=== PATIENT | female | born 1970 | race Caucasian/White ===

== ENCOUNTER 2016-09-13 09:05 | Emergency (ER) | payer OTHER, BC ==
[2016-09-13 09:37] VITALS: BP 129/87
--- NOTE | 2016-09-13 10:15 | EDM.PDOC ---
ED HPI Trauma - General Chief Complaint: Lower Extremity Injury/Pain Stated Complaint: R ANKLE INJURY Time Seen by Provider: 09/13/16 09:48 Source: Reports: Patient History Limitations: Reports: No limitations - History of Present Illness INITIAL COMMENTS - FREE TEXT/NARRATIVE: The patient presents with right ankle pain. She was walking into work and slipped on the ice. She twisted her right ankle. She has some pain with walking in the posterior ankle. Occurred When: yesterday Occurred Where: work Method of Injury: other (Slipped on the ice) Severity: moderate Pain/Injury Location: Reports: lower extremity, right (ankle) Consciousness: Reports: no loss of consciousness Associated Symptoms: Reports: no other symptoms Allergies/ADRs: Allergies bacitracin [From Neosporin ([id number])] Allergy (Verified 09/13/16 09:37) Rash minocycline Allergy (Verified 09/13/16 09:37) Hives neomycin [From Neosporin ([id number])] Allergy (Verified 09/13/16 09:37) Rash Penicillins Allergy (Verified 09/13/16 09:37) Hives polymyxin B [From Neosporin ([id number])] Allergy (Verified 09/13/16 09:37) Rash Home Medications: Ambulatory Orders Calcium Carbonate/Vitamin D3 [Calcium 500 + Vit D Caplet] 1 each PO DAILY [Confirmed 09/13/16] Chromium Picolinate 400 mcg PO BID 09/13/16 [Confirmed 09/13/16] Flecainide Acetate [Flecainide Acetate] 1 tab PO BID 09/13/16 [Confirmed ] Magnesium 250 mg PO DAILY 09/13/16 [Confirmed 09/13/16] Multivitamin [Multiple Vitamins] 1 each PO DAILY 09/13/16 [Confirmed 09/13/16] Pantoprazole Sodium [Protonix] 40 mg PO DAILY 09/13/16 [Confirmed 09/13/16] metFORMIN HCl [Metformin HCl] 2 tab PO BEDTIME 09/13/16 [Confirmed 09/13/16] Past Medical History - Past Health History Medical/Surgical History: Denies Medical/Surgical History Cardiovascular History: Reports: Arrhythmia, Other (see below) Other Cardiovascular History: PVC's 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: Reports: 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 (see below) Other OB/BYN History: novasure ablasion - Past Surgical History HEENT Surgical History: Reports: Adenoidectomy GI Surgical History: Reports: Bariatric procedure, Colonoscopy, EGD Musculoskeletal Surgical History: Reports: Arthroscopic knee Other Musculoskeletal Surgeries/Procedures:: left knee scoping Social & Family History - Family History Family Medical History: Noncontributory - Tobacco Use Smoking Status *Q: Never Smoker - Caffeine Use Caffeine Use: Reports: Other - Recreational Drug Use Recreational Drug Use: No Review of Systems - Review of Systems Review Of Systems: See Below Constitutional: Reports: no symptoms Eyes: Reports: no symptoms Ears: Reports: no symptoms Nose: Reports: no symptoms Mouth/Throat: Reports: no symptoms Respiratory: Reports: No Symptoms Cardiovascular: Reports: no symptoms GI/Abdominal: Reports: No symptoms Genitourinary: Reports: no symptoms Musculoskeletal: Reports: other (Right ankle pain) Trauma Exam - Physical Exam Exam: See Below Exam Limited By: No limitations General Appearance: Reports: alert, no apparent distress Head: Reports: atraumatic, normocephalic Ears: Reports: normal external exam Nose: Reports: normal inspection Respiratory Exam: Reports: no respiratory distress Course - Vital Signs Last Recorded V/S: Last Vital Signs Temp 98.3 F 09/13/16 09:25 Pulse 76 09/13/16 09:25 Resp 18 09/13/16 09:25 BP 129/87 09/13/16 09:25 Pulse Ox 99 09/13/16 09:25 - Orders/Labs/Meds Orders: Active Orders 24 hr Category Date Time Status Ankle Min 3V Rt [CR] Stat Exams 09/13/16 09:48 Taken - Re-Assessments/Exams Free Text/Narrative Re-Assessment/Exam: 09/13/16 10:11 Her x-ray looks good. I see no acute injury. I feel she has a sprain. She has an francisco wrap. I will refer her to PT. 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 Take motrin or aleve for pain. Follow up with physical therapy. - My Orders Last 24 Hours: My Active Orders 09/13/16 09:48 Ankle Min 3V Rt [CR] Stat - Assessment/Plan Last 24 Hours: My Active Orders 09/13/16 09:48 Ankle Min 3V Rt [CR] Stat
--- NOTE | 2016-09-13 11:16 | CR ---
Right ankle: Four views of the right ankle were obtained. Comparison: No previous study. Plantar spur is noted. Ankle mortise is symmetric. Mild soft tissue swelling is identified. Minimal bony density is noted off the medial malleolus which appears old. No acute fracture or other abnormality is seen. Impression: 1. Incidental findings. No acute bony abnormality is identified on right ankle exam. Diagnostic code #2
== END 2016-09-13 10:25 | disposition home or self-care (01) ==
LOC: JD.ED 09:05
DX: S93.491A Sprain of other ligament of right ankle, initial encounter (principal); K21.9 Gastro-esophageal reflux disease without esophagitis; W00.0XXA Fall on same level due to ice and snow, initial encounter; Y92.69 Other specified industrial and construction area as the place of occurrence of the external cause; Y99.0 Civilian activity done for income or pay; Z88.1 Allergy status to other antibiotic agents; Z98.84 Bariatric surgery status; Z98.890 Other specified postprocedural states
CPT/HCPCS: 73610-26-RT; 73610-RT; 99282; 99283; 99284

== ENCOUNTER 2016-10-27 08:57 | Observation (INO) | payer BC, OTHER ==
--- NOTE | 2016-10-27 08:59 | EDM.PDOC ---
ED HPI GENERAL MEDICAL PROBLEM - General Chief Complaint: Chest Pain Stated Complaint: CHEST PAIN Time Seen by Provider: 10/27/16 08:59 - History of Present Illness INITIAL COMMENTS - FREE TEXT/NARRATIVE: 46-year-old female presents emergency room with chest pain. This chest pain started around 8:30 this morning. The pain is substernal radiates into her right neck and shoulder. 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 She an extensive cardiac workup done in 2011 which was when her last and only stress test was done that was normal. The patient is doing well with her PVCs she takes flecainide 50 mg twice daily. She did not do well with beta blockers. This chest pain started this morning around 8:30. Without associated nausea vomiting or diaphoresis she does have reading pain into her right neck and into her shoulder as well the pain is described as a pressure sensation she rates the pain as a 7 or 8/10 at this time. Right Chest Pain Score (Numeric/FACES): 7 - Related Data Allergies Allergy/AdvReac Type Severity Reaction Status Date / Time bacitracin Allergy Rash Verified 10/27/16 12:58 [From Neosporin ([id number])] minocycline Allergy Hives Verified 10/27/16 12:58 neomycin Allergy Rash Verified 10/27/16 12:58 [From Neosporin ([id number])] Penicillins Allergy Hives Verified 10/27/16 12:58 polymyxin B Allergy Rash Verified 10/27/16 12:58 [From Neosporin ([id number])] Home Meds: Home Meds Chromium Picolinate 400 mcg PO BID 09/13/16 [History] Flecainide Acetate [Flecainide Acetate] 1 tab PO BID 09/13/16 [History] Magnesium 500 mg PO BEDTIME 09/13/16 [History] Multivitamin [Multiple Vitamins] 1 each PO BEDTIME 09/13/16 [History] Pantoprazole Sodium [Protonix] 40 mg PO DAILY 09/13/16 [History] Bifidobacter. 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) Other OB/BYN History: novasure ablasion - Past Surgical History GI Surgical History: Reports: Bariatric Procedure, Colonoscopy, EGD Musculoskeletal Surgical History: Reports: Arthroscopic Knee Social & Family History - Family History Family Medical History: Noncontributory - Tobacco Use Smoking Status *Q: Never Smoker - Caffeine Use Caffeine Use: Reports: Other - Recreational Drug Use Recreational Drug Use: No ED ROS GENERAL - Review of Systems Review Of Systems: See Below Constitutional: Denies: Fever, Chills HEENT: Reports: No Symptoms Respiratory: Reports: No Symptoms Cardiovascular: Reports: Chest Pain, Blood Pressure Problem (Noticed her blood pressure is a little higher than normal today she is not treated for hypertension.). Denies: Dyspnea on Exertion, Edema, Palpitations GI/Abdominal: Reports: No Symptoms : Reports: No Symptoms Musculoskeletal: Reports: No Symptoms Skin: Reports: No Symptoms Neurological: Reports: No Symptoms ED EXAM, GENERAL - Physical Exam Exam: See Below Exam Limited By: No Limitations General Appearance: Alert, No Apparent Distress Head: Atraumatic, Normocephalic Neck: Normal Inspection, Supple, Non-Tender, Full Range of Motion. No: Lymphadenopathy (L), Lymphadenopathy (R) Respiratory/Chest: No Respiratory Distress, Lungs Clear, Normal Breath Sounds Cardiovascular: Regular Rate, Rhythm, No Edema, No Murmur GI/Abdominal: Normal Bowel Sounds, Soft, Non-Tender Back Exam: Normal Inspection. No: CVA Tenderness (L), CVA Tenderness (R) Extremities: Normal Inspection, Non-Tender, No Pedal Edema EKG INTERPRETATION EKG Date: 10/27/16 Rhythm: NSR Luckey: LAD-left axis deviation P-wave: present QRS: other (Q waves in lead 3 otherwise normal QRS with a leftward axis) ST-T: other (Very subtle nonspecific nondiagnostic changes) QT: normal Comparison: NA - no prior EKG EKG Interpretation Comments: Abnormal Course - Vital Signs Last Recorded V/S: Last Vital Signs Temp 37.2 C 10/27/16 19:28 Pulse 79 06/08/17 19:28 Resp 16 10/27/16 19:28 BP 116/63 10/27/16 19:28 Pulse Ox 97 10/27/16 19:28 - Orders/Labs/Meds Orders: Active Orders 24 hr Category Date Time Status Sodium Chloride 0.9% [Normal Saline] 1,000 ml Med 10/27/16 09:15 Active IV ASDIRECTED Medication Orders Acetaminophen (Tylenol) 650 mg PO Q4H PRN PRN Reason: Pain (Mild 1-3)/fever Last Admin: 10/27/16 17:35 Dose: 650 mg Hydrocodone Bitart/Acetaminophen (Harmans 325-5 Mg) 1 tab PO Q4H PRN PRN Reason: Pain (moderate 4-6) Albuterol/Ipratropium (Duoneb 3.0-0.5 Mg/3 Ml) 3 ml NEB Q4H PRN PRN Reason: Shortness Of Breath/wheezing Bisacodyl (Dulcolax) 5 mg PO DAILY PRN PRN Reason: Constipation Docusate Sodium (Colace) 100 mg PO BID PRN PRN Reason: Constipation Enoxaparin Sodium (Lovenox) 40 mg SUBCUT DAILY [facility] Flecainide Acetate (Tambocor) 50 mg PO BID [facility] Hydralazine HCl (Apresoline) 20 mg IVPUSH Q4H PRN PRN Reason: Hypertension Sodium Chloride (Normal Saline) 1,000 mls @ 50 mls/hr IV ASDIRECTED [facility] Last Admin: 10/27/16 09:36 Dose: 50 mls/hr Promethazine HCl 12.5 mg/ (Sodium Chloride) 50.5 mls @ 100 mls/hr IV Q6H PRN PRN Reason: Nausea/Vomiting Lorazepam (Ativan) 1 mg IV Q6H PRN PRN Reason: Nausea/Vomiting Magnesium Oxide (Magnesium Oxide) 400 mg PO BEDTIME [facility] Magnesium Sulfate (Pharmacy To Dose - Magnesium Replacement) 1 dose .XX ASDIRECTED [facility] Metoprolol Tartrate (Lopressor) 5 mg IVPUSH Q4H PRN PRN Reason: Tachycardia Morphine Sulfate (Morphine) 2 mg IVPUSH Q2H PRN PRN Reason: Pain (severe 7-10) Stop: 10/28/16 14:36 Last Admin: 10/27/16 14:37 Dose: 2 mg Multivitamins (Thera) 1 each PO BEDTIME [facility] Ondansetron HCl (Zofran) 4 mg IV Q6H PRN PRN Reason: Nausea/Vomiting Pantoprazole Sodium (Protonix) 40 mg PO DAILY [facility] Calcium Carb/Vitamin D3/Vit K1 [Viactiv Soft Chew] 2 Tab) 0 each PO BEDTIME [facility] Chromium Picolinate [Chromium Picolinate ] 400 Mcg 0 each PO BID [facility] Polyethylene Glycol (Miralax) 17 gm PO DAILY PRN PRN Reason: Constipation Potassium Chloride (Pharmacy To Dose - Potassium Replacement) 1 dose .XX ASDIRECTED [facility]LE[facility] Saccharomyces Boulardii (Florastor) 250 mg PO DAILY [facility] Senna/Docusate Sodium (Senna Plus) 1 tab PO BID PRN PRN Reason: Constipation Temazepam (Restoril) 30 mg PO BEDTIME PRN PRN Reason: Sleep Labs: Laboratory Tests 10/27/16 10/27/16 10/27/16 Range/Units 09:35 09:35 09:35 WBC 4.30 (3.98-10.04) K/mm3 RBC 4.74 (3.98-5.22) M/mm3 Hgb 15.5 (11.2-15.7) gm/L Hct 44.1 (34.1-44.9) % MCV 93.0 (79.4-94.8) fl MCH 32.7 H (25.6-32.2) pg MCHC 35.1 (32.2-35.5) g/dl RDW Std Deviation 40.9 (36.4-46.3) fL Plt Count 268 (182-369) K/mm3 MPV 9.0 L (9.4-12.3) fl Neutrophils % (Manual) 36 L (40-60) % Band Neutrophils % 0 (0-10) % Lymphocytes % (Manual) 54 H (20-40) % Atypical Lymphs % 0 % Monocytes % (Manual) 8 (2-10) % Eosinophils % (Manual) 2 (0.7-5.8) % Basophils % (Manual) 0 L (0.1-1.2) Platelet Estimate Adequate RBC Morph Comment Normal PT 10.6 (8.0-13.0) SECONDS INR 0.97 APTT 27 (22-36) SECONDS Sodium 138 (136-145) mEq/L Potassium 4.1 (3.5-5.1) mEq/L Chloride 105 (98-107) mEq/L Carbon Dioxide 22 (21-32) mEq/L Anion Gap 15.1 H (5-15) BUN 13 (7-18) mg/dL Creatinine 0.8 (0.55-1.02) mg/dL Est Cr Clr Drug Dosing 87.27 mL/min Estimated GFR (MDRD) > 60 (>60) mL/min BUN/Creatinine Ratio 16.3 (14-18) Glucose 92 (74-106) mg/dL Calcium 8.8 (8.5-10.1) mg/dL Total Bilirubin 0.7 (0.2-1.0) mg/dL AST 20 (15-37) U/L ALT 26 (14-59) U/L Alkaline Phosphatase 91 (46-116) U/L Troponin I < 0.017 (0.00-0.056) ng/mL Total Protein 7.9 (6.4-8.2) g/dl Albumin 3.8 (3.4-5.0) g/dl Globulin 4.1 gm/dL Albumin/Globulin Ratio 0.9 L (1-2) TSH 3rd Generation 2.063 (0.358-3.74) uIU/mL 10/27/16 Range/Units 11:45 WBC (3.98-10.04) K/mm3 RBC (3.98-5.22) M/mm3 Hgb (11.2-15.7) gm/L Hct (34.1-44.9) % MCV (79.4-94.8) fl MCH (25.6-32.2) pg MCHC (32.2-35.5) g/dl RDW Std Deviation (36.4-46.3) fL Plt Count (182-369) K/mm3 MPV (9.4-12.3) fl Neutrophils % (Manual) (40-60) % Band Neutrophils % (0-10) % Lymphocytes % (Manual) (20-40) % Atypical Lymphs % % Monocytes % (Manual) (2-10) % Eosinophils % (Manual) (0.7-5.8) % Basophils % (Manual) (0.1-1.2) Platelet Estimate RBC Morph Comment PT (8.0-13.0) SECONDS INR APTT (22-36) SECONDS Sodium (136-145) mEq/L Potassium (3.5-5.1) mEq/L Chloride (98-107) mEq/L Carbon Dioxide (21-32) mEq/L Anion Gap (5-15) BUN (7-18) mg/dL Creatinine (0.55-1.02) mg/dL Est Cr Clr Drug Dosing mL/min Estimated GFR (MDRD) (>60) mL/min BUN/Creatinine Ratio (14-18) Glucose (74-106) mg/dL Calcium (8.5-10.1) mg/dL Total Bilirubin (0.2-1.0) mg/dL AST (15-37) U/L ALT (14-59) U/L Alkaline Phosphatase (46-116) U/L Troponin I < 0.017 (0.00-0.056) ng/mL Total Protein (6.4-8.2) g/dl Albumin (3.4-5.0) g/dl Globulin gm/dL Albumin/Globulin Ratio (1-2) TSH 3rd Generation (0.358-3.74) uIU/mL Meds: Medications Generic Name Dose Route Start Last Admin Trade Name Freq PRN Reason Stop Dose Admin Acetaminophen 650 mg 10/27/16 14:15 10/27/16 17:35 Tylenol PO 650 mg Q4H PRN Administration Pain (Mild 1-3)/fever Hydrocodone Bitart/Acetaminophen 1 tab 10/27/16 14:15 Harmans 325-5 Mg PO Q4H PRN Pain (moderate 4-6) Albuterol/Ipratropium 3 ml 10/27/16 14:15 Duoneb 3.0-0.5 Mg/3 Ml NEB Q4H PRN Shortness Of Breath/wheezing Bisacodyl 5 mg 10/27/16 14:15 Dulcolax PO DAILY PRN Constipation Docusate Sodium 100 mg 10/27/16 14:15 Colace PO BID PRN Constipation Enoxaparin Sodium 40 mg 10/28/16 09:00 Lovenox SUBCUT DAILY CATHLEEN Flecainide Acetate 50 mg 10/27/16 21:00 Tambocor PO BID CATHLEEN Hydralazine HCl 20 mg 10/27/16 14:15 Apresoline IVPUSH Q4H PRN Hypertension Sodium Chloride 1,000 mls @ 50 mls/hr 10/27/16 09:15 10/27/16 09:36 Normal Saline IV 50 mls/hr ASDIRECTED CATHLEEN Administration Promethazine HCl 12.5 mg/ 50.5 mls @ 100 mls/hr 10/27/16 14:15 Sodium Chloride IV Q6H PRN Nausea/Vomiting Lorazepam 1 mg 10/27/16 14:15 Ativan IV Q6H PRN Nausea/Vomiting Magnesium Oxide 400 mg 10/27/16 21:00 Magnesium Oxide PO BEDTIME CATHLEEN Magnesium Sulfate 1 dose 10/27/16 14:15 Pharmacy To Dose - Magnesium Replacement .XX ASDIRECTED [facility] Metoprolol Tartrate 5 mg 10/27/16 14:15 Lopressor IVPUSH Q4H PRN Tachycardia Morphine Sulfate 2 mg 10/27/16 14:35 10/27/16 14:37 Morphine IVPUSH 10/28/16 14:36 2 mg Q2H PRN Administration Pain (severe 7-10) Multivitamins 1 each 10/27/16 21:00 Thera PO BEDTIME [facility] Ondansetron HCl 4 mg 10/27/16 14:15 Zofran IV Q6H PRN Nausea/Vomiting Pantoprazole Sodium 40 mg 10/28/16 09:00 Protonix PO DAILY [facility] Calcium Carb/Vitamin 0 each 10/27/16 21:00 D3/Vit K1 [Viactiv PO Soft Chew] 2 Tab) BEDTIME [facility] Chromium Picolinate 0 each 10/27/16 21:00 [Chromium Picolinate PO ] 400 Mcg BID [facility] Polyethylene Glycol 17 gm 10/27/16 14:15 Miralax PO DAILY PRN Constipation Potassium Chloride 1 dose 10/27/16 14:15 Pharmacy To Dose - Potassium Replacement .XX ASDIRECTED [facility] Saccharomyces Boulardii 250 mg 10/28/16 09:00 Florastor PO DAILY [facility] Senna/Docusate Sodium 1 tab 10/27/16 14:15 Senna Plus PO BID PRN Constipation Temazepam 30 mg 10/27/16 14:15 Restoril PO BEDTIME PRN Sleep Discontinued Medications Generic Name Dose Route Start Last Admin Trade Name Freq PRN Reason Stop Dose Admin Aspirin 324 mg 10/27/16 09:05 10/27/16 09:28 Aspirin PO 10/27/16 09:06 324 mg ONETIME ONE Administration Morphine Sulfate 2 mg 10/27/16 10:10 10/27/16 10:14 Morphine IVPUSH 10/27/16 10:11 2 mg ONETIME ONE Administration Morphine Sulfate Confirm 10/27/16 10:15 10/27/16 10:42 Morphine Administered 10/27/16 10:16 Not Given Dose 2 mg .ROUTE .STK-MED ONE Morphine Sulfate 2 mg 10/27/16 10:33 10/27/16 10:42 Morphine IVPUSH 10/27/16 10:34 2 mg ONETIME ONE Administration Morphine Sulfate 2 mg 10/27/16 10:55 10/27/16 11:00 Morphine IVPUSH 10/27/16 10:56 2 mg ONETIME ONE Administration Morphine Sulfate 2 mg 10/27/16 11:29 10/27/16 11:36 Morphine IVPUSH 10/27/16 11:30 2 mg ONETIME ONE Administration Nitroglycerin 0.4 mg 10/27/16 09:05 10/27/16 09:37 Nitrostat SL 10/27/16 09:16 0.4 mg Q5M PRN Administration Chest Pain Nitroglycerin 0.4 mg 10/27/16 09:45 10/27/16 09:51 Nitrostat SL 10/27/16 09:46 0.4 mg ONETIME ONE Administration Nitroglycerin 1 gm 10/27/16 09:45 10/27/16 09:52 Nitro-Bid 2% TOP 10/27/16 09:46 1 gm ONETIME ONE Administration Nitroglycerin 1 gm 10/27/16 10:55 10/27/16 11:02 Nitro-Bid 2% TOP 10/27/16 10:56 1 gm ONETIME ONE Administration Nitroglycerin Confirm 10/27/16 11:00 10/27/16 11:04 Nitro-Bid 2% Administered 10/27/16 11:01 Not Given Dose 1 gm .ROUTE .STK-MED ONE Nitroglycerin 1 gm 10/27/16 11:29 10/27/16 11:36 Nitro-Bid 2% TOP 10/27/16 11:30 1 gm ONETIME ONE Administration Pantoprazole Sodium 40 mg 10/27/16 21:00 Protonix Iv IV Q12HR CATHLEEN - Re-Assessments/Exams Free Text/Narrative Re-Assessment/Exam: 10/27/16 12:30 Patient presented to the emergency room with chest pain. Initially her chest pain was about an 8 upon arrival here this did respond to nitroglycerin however came back up to about a 4. She was started on an inch of nitro paste and given some morphine and did well with this but the pain did return to a 3 or 4 when the morphine wore off her topical nitroglycerin was increased to 2 g and she was given a little bit more and morphine recently she's done well just on topical nitroglycerin her pain is a 0-1. Initial troponin is negative second troponin was negative. Initial EKG showed no acute ischemia she has some nonspecific changes leftward axis. Q waves in 3 were noted. The patient thinks this is not new she's been told she's had these in the past. 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 She had an extensive cardiac workup done in 2011 are she was diagnosed with frequent PVCs. This has not been bothersome for her lately. At this point she's doing well in the nitroglycerin the patient should be observed longer than I can do in the emergency room and will need a stress test in the very near future. 10/27/16 13:10 Patient will be placed on observation per Dr. Mello Departure - Departure Time of Disposition: 12:37 Disposition: Refer to Observation Clinical Impression: Chest pain - My Orders Last 24 Hours: My Active Orders 10/27/16 09:15 Sodium Chloride 0.9% [Normal Saline] 1,000 ml IV ASDIRECTED - Assessment/Plan Last 24 Hours: My Active Orders 10/27/16 09:15 Sodium Chloride 0.9% [Normal Saline] 1,000 ml IV ASDIRECTED
[2016-10-27] MEDS ORDERED: Aspirin 81 MG Tab.Chew PO ONE (09:05)
[2016-10-27] MEDS: Nitroglycerin 0.4 MG Tab.SL SL PRN ×3 (09:27→09:37)
[2016-10-27] MEDS: Sodium Chloride 0.9% 1,000 ML IV SCH (09:36)
[2016-10-27] MEDS ORDERED: Nitroglycerin 0.4 MG Tab.SL SL ONE (09:45)
[2016-10-27] MEDS ORDERED: Nitroglycerin 2% Oint 1 GM UD Packet TOP ONE ×3 (09:45→11:29)
[2016-10-27] MEDS ORDERED: Morphine 2 MG/ML Syringe IVPUSH ONE ×4 (10:10→11:29)
[2016-10-27] MEDS ORDERED: Morphine 2 MG/ML Syringe ONE (10:15)
--- NOTE | 2016-10-27 10:32 | CR ---
Chest: Frontal view of the chest was obtained. Comparison: Previous chest x-ray of 07/27/11. Heart size and mediastinum are within normal limits. Lungs are clear. Mild scoliosis is present within the spine. Surgical clips are seen from prior cholecystectomy. Impression: 1. Nothing acute is identified on frontal chest x-ray. Diagnostic code #2
[2016-10-27] MEDS ORDERED: Nitroglycerin 2% Oint 1 GM UD Packet ONE (11:00)
[2016-10-27] MEDS ORDERED: Bisacodyl 5 MG Tab PO PRN (14:15)
[2016-10-27] MEDS ORDERED: Promethazine 12.5 MG in Sodium Chloride 0.9% 50 ML IV PRN (14:15)
[2016-10-27] MEDS ORDERED: Metoprolol Tartrate 5 MG/5 ML SDV IVPUSH PRN (14:15)
[2016-10-27] MEDS ORDERED: LORazepam 2 MG/ML MDV IV PRN (14:15)
[2016-10-27] MEDS ORDERED: Temazepam 30 MG Cap PO PRN (14:15)
[2016-10-27] MEDS ORDERED: hydrALAZINE 20 MG/ML SDV IVPUSH PRN (14:15)
[2016-10-27] MEDS ORDERED: Albuterol/Ipratropium 3.0-0.5 MG/3 ML Neb Soln NEB PRN (14:15)
[2016-10-27] MEDS ORDERED: Polyethylene Glycol 3350 Powder 17 GM Packet PO PRN (14:15)
[2016-10-27] MEDS ORDERED: Acetaminophen/HYDROcodone 325-5 MG Tab PO PRN (14:15)
[2016-10-27] MEDS ORDERED: Docusate Sodium 100 MG Cap PO PRN (14:15)
[2016-10-27] MEDS ORDERED: Ondansetron 4 MG/2 ML SDV IV PRN (14:15)
--- NOTE | 2016-10-27 14:15 | PCM.HP ---
H&P History of Present Illness - General Date of Service: 10/27/16 Admit Problem/Dx: Admission Diagnosis/Problem Admission Diagnosis/Problem Chest pain Source of Information: Patient, Family, Old Records, Provider, RN Notes Reviewed , Significant Other History Limitations: Reports: No Limitations - History of Present Illness Initial Comments - Free Text/Narative: This is a 46 yo white female with past medical hx/o GERD, Vitamin D Deficiency and Obesity who presented to ED with complaints of chest pain. She describes her pain as achy with radiation to her right shoulder and upper jaw. Her chest pain improved with nitroglycerine and morphine. her currently level is 3-4/10. She was 8 initially. Patient carries a hx/o Arrhythmia (PVCs) on flecainide. She denies ever been told if she has malignant arrhythmia. She had a holter study in 2016 and the report shows PVCs w/o SVTs. Patient denies any hx/o premature CAD in the family. She has not had any heart attack in the past. Her initial work up in ED shows unremarkable CBC. INR/PT and aPTT were both normal. Her chemistry is significant for AG 15.1. Troponin x 2 are negative. Her EKG shows no acute ST-T wave changes with no baseline comparison. Her CXR report reads nothing acute seen. Patient is being admitted for chest pain r/o ACS. Right Chest Pain Score (Numeric/FACES): 7 - Related Data Allergies/Adverse Reactions: Allergies Allergy/AdvReac Type Severity Reaction Status Date / Time bacitracin Allergy Rash Verified 10/27/16 12:58 [From Neosporin ([id number])] minocycline Allergy Hives Verified 10/27/16 12:58 neomycin Allergy Rash Verified 10/27/16 12:58 [From Neosporin ([id number])] Penicillins Allergy Hives Verified 10/27/16 12:58 polymyxin B Allergy Rash Verified 10/27/16 12:58 [From Neosporin ([id number])] Home Medications: Home Meds Chromium Picolinate 400 mcg PO BID 09/13/16 [History] Flecainide Acetate [Flecainide Acetate] 1 tab PO BID 09/13/16 [History] Magnesium 500 mg PO BEDTIME 09/13/16 [History] Multivitamin [Multiple Vitamins] 1 each PO BEDTIME 09/13/16 [History] Pantoprazole Sodium [Protonix] 40 mg PO DAILY 09/13/16 [History] Bifidobacter. 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: Reports: GERD PHONE REPRESENTATIVE History: Reports: Other (See Below) Other OB/BYN History: novasure ablasion - Past Surgical History GI Surgical History: Reports: Bariatric Procedure, Colonoscopy, EGD Musculoskeletal Surgical History: Reports: Arthroscopic Knee Social & Family History - Family History Family Medical History: Noncontributory - Tobacco Use Smoking Status *Q: Never Smoker Second Hand Smoke Exposure: No - Caffeine Use Caffeine Use: Reports: Other - Recreational Drug Use Recreational Drug Use: No H&P Review of Systems - Review of Systems: Review Of Systems: See Below General: Denies: Fever, Chills, Malaise, Weakness HEENT: Reports: No Symptoms Pulmonary: Denies: Shortness of Breath Cardiovascular: Reports: Chest Pain. Denies: Palpitations, Dyspnea on Exertion , Orthopnea, Edema, Lightheadedness, Syncope, Claudication, Blood Pressure Problem Gastrointestinal: Denies: Abdominal Pain, Nausea, Vomiting Genitourinary: Reports: No Symptoms Musculoskeletal: Reports: No Symptoms Skin: Reports: No Symptoms Psychiatric: Denies: Confusion, Depression, Hallucinations, Hallucinations ( Visual) Neurological: Denies: Confusion, Dizziness, Headache, Seizure, Syncope, Difficulty Walking, Weakness, Gait Disturbance Hematologic/Lymphatic: Reports: No Symptoms Immunologic: Reports: No Symptoms Exam - Exam Exam: See Below - Vital Signs Vital Signs: Last Vital Signs Temp 36.7 C 10/27/16 09:00 Pulse 98 10/27/16 09:00 Resp 21 H 10/27/16 09:00 BP 149/97 H 10/27/16 09:51 Pulse Ox 100 10/27/16 09:00 Weight: 92.986 kg - Exam General: Alert, Oriented, Cooperative, Mild Distress, Other (Obese) HEENT: Conjunctiva Clear, EACs Clear, EOMI, Hearing Intact, Mucosa Moist & [place] , Nares Patent, Normal Nasal Septum, Posterior Pharynx Clear, Pupils Equal, Pupils Reactive, TMs Clear Neck: Supple, Trachea Midline, +2 Carotid Pulse wo Bruit, Other (short and thick ) Lungs: Clear to Auscultation, Normal Respiratory Effort Cardiovascular: Regular Rate, Regular Rhythm Abdomen: Normal Bowel Sounds, Soft. No: Organomegaly, Tenderness (Female) Exam: Deferred Rectal (Female) Exam: Deferred Back Exam: Normal Inspection, Decreased Range of Motion Extremities: Normal Inspection, Normal Pulses Peripheral Pulses: 3+: Posterior Tibial (L), Posterior Tibial (R), Dorsalis Pedis (L), Dorsalis Pedis (R) Skin: Warm, Dry, Intact Neuro Extensive - Mental Status: Oriented x3, Normal Cognition, Memory Intact Neuro Extensive - Motor, Sensory, Reflexes: CN II-XII Intact, Normal Gait Psychiatric: Alert, Normal Affect, Normal Mood - Patient Data Result Diagrams: 10/27/16 09:35 10/27/16 09:35 EKG INTERPRETATION EKG Date: 10/27/16 Rhythm: NSR [place]: LAD-left axis deviation Comparison: NA - no prior EKG *Q Meaningful Use (ADM) - VTE *Q VTE Criteria *Q: - Stroke *Q Stroke Criteria *Q: - AMI *Q AMI Criteria *Q: Problem List Initiated/Reviewed/Updated: Yes Orders Last 24hrs: Medication Orders Sodium Chloride (Normal Saline) 1,000 mls @ 50 mls/hr IV ASDIRECTED CAHTLEEN Last Admin: 10/27/16 09:36 Dose: 50 mls/hr Assessment/Plan Comment:: Assessment/Plan: CP r/o ACS - HEART Score is 1. Low Score (0-3 points), risk of MACE of 0.9-1.7%: Predicts 6-week risk of major adverse cardiac event - She had an extensive cardiac work up in 2011 with fairly benign diagnosis of frequent PVCs per patient - Chest pain unclear in etiology - No hx/o Premature CAD in family - Risk factors: Obesity - No HTN, HLD, CAD, Diabetes, Hx/o VT/Stroke, Non-smoker - CP protocol: Serial Troponin Q6 x2, ekg x 1 in am, TFT and Lipid Panel in am - ASA, Nitro, Morphine, +/- BB, - Will add statin if lipid panel is abnormal - No need cardiac stress test-her pre-CAD risk if low Hx/o Arrhythmia - Chronic PVCs - No documented malignant arrhythmia - Continue flecainide Morbid Obesity - She used to take Metformin for weight loss - Advised LSM - Dietary Consult for weight management GERD - Continue PPIs Plan: Admit to OBS with Telemetry AHA diet Routine AM Labs Resume Home Meds SW/CM for d/c planning Code Status:1 Additional orders as above Possible discharge in am
[2016-10-27] MEDS ORDERED: Morphine 2 MG/ML Syringe IVPUSH PRN (14:35)
[2016-10-27] MEDS: Acetaminophen 325 MG Tab PO PRN ×2 (17:35→21:01)
[2016-10-27] MEDS ORDERED: VIT K1 PO SCH (21:00)
[2016-10-27] MEDS ORDERED: Pantoprazole 40 MG Vial IV SCH (21:00)
[2016-10-27] MEDS ORDERED: Multivitamins,Therapeutic Tab PO SCH (21:00)
[2016-10-27] MEDS ORDERED: Flecainide 50 MG Tab PO SCH (21:00)
[2016-10-27] MEDS ORDERED: VITAMIN D3 PO SCH (21:00)
[2016-10-27] MEDS ORDERED: CHROMIUM PICOLINATE 400 MCG PO SCH (21:00)
[2016-10-27] MEDS ORDERED: MAGNESIUM OXIDE 400 MG PO SCH (21:00)
[2016-10-27] MEDS ORDERED: CALCIUM CARB PO SCH (21:00)
[2016-10-27] MEDS ORDERED: Magnesium Oxide 400 MG Tab PO SCH (21:00)
[2016-10-28] MEDS: Sodium Chloride 0.9% 1,000 ML IV SCH (00:13)
[2016-10-28] MEDS ORDERED: Magnesium Oxide 400 MG Tab PO ONE (08:15)
[2016-10-28] MEDS ORDERED: Potassium Chloride 20 MEQ Tab.ER PO ONE (08:15)
[2016-10-28] MEDS ORDERED: Saccharomyces Boulardii (Probiotic) 250 MG Cap PO SCH (09:00)
[2016-10-28] MEDS ORDERED: Enoxaparin 40 MG/0.4 ML Syringe SUBCUT SCH (09:00)
[2016-10-28] MEDS ORDERED: Pantoprazole 40 MG Tab.CR **OWN MED PO SCH (09:00)
[2016-10-28] MEDS ORDERED: Pantoprazole 40 MG Tab.CR PO SCH (09:00)
--- NOTE | 2016-10-28 09:20 | PCM.DCSUM1 ---
Discharge Summary - Hospital Course Brief History: This is a 46 yo white female with past medical hx/o GERD, Vitamin D Deficiency and Obesity who presented to ED with complaints of achy chest pain with radiation to her right shoulder and upper jaw, was admitted for chest pain r/o ACS. - Discharge Data Discharge Date: 10/28/16 Discharge Disposition: Home, Self-Care 01 Condition: Good - Discharge Diagnosis/Problem(s) (1) Hypomagnesemia SNOMED Code(s): 079135203 ICD Code: E83.42 - HYPOMAGNESEMIA Status: Chronic (2) Chest pain SNOMED Code(s): 65147905 ICD Code: R07.9 - CHEST PAIN, UNSPECIFIED Status: Resolved (3) Frequent PVCs SNOMED Code(s): 88644606 ICD Code: I49.3 - VENTRICULAR PREMATURE DEPOLARIZATION Status: Acute - Patient Summary/Data Operative Procedure(s) Performed: None Complications: None Consults: Consultations 10/27/16 14:15 Consult to Case Management [CONS] Routine Consult to Nutrition Internship [CONS] Routine Consult to Spiritual Care [CONS] Routine 10/27/16 14:21 Consult to Dietary [Consult to Patient Account Liaison] [CONS] Routine Hospital Course: The patient was primarily admitted for chest pain rule out ACS. She carrieds no past medical history related to coronary artery disease. She also had no history of [place] as well as no premature CAD in the family. All her basic cardiac workup revealed no clear etiology of her chest pain. Her cardiac enzymes were all negative and her EKG series were non-diagnostic. However she responded to nitroglycerin paste as well as morphine for medical management. Patient did not meet criteria for cardiac stress test. Her HEART score and Pre- CAD probability were both low. We felt her chest pain might be related to her chronic PVCs. Therefore we recommend she follows-up with her montessori program director Dr. De La Torre in [facility] right after discharge. Her hospital course was uncomplicated. She is now completely asymptomatic and the rest of her chronic medical illness remained stable on this admission. Patient is now stable for discharge. He will be provided prescriptions for sublingual nitroglycerin and a short course of norco for her precordial chest pain. She was advised to call her primary care doctor or go to the nearest medical facility should her symptom persists or gets worse. The patient expressed understanding and in agreement with the plans as discussed above. All questions were answered. - Patient Instructions Diet: Usual Diet as Tolerated Activity: As Tolerated Driving: May Drive Today Notify Provider of: Fever, Increased Pain, Nausea and/or Vomiting Other/Special Instructions: - Please take all medications as directed. - If your symptom persists or gets worse, call your PCP of go to the nearest medical facility. - Keep all your medical appointments as scheduled - Discharge Plan Prescriptions/Med Rec: Hydrocodone/Acetaminophen [[place] 5-325 Tablet] 1 each PO Q6H PRN #12 tablet PRN Reason: Other Nitroglycerin 0.4 mg SL ASDIRECTED PRN #6 tab.subl PRN Reason: Chest Pain Home Medications: Home Meds Chromium Picolinate 400 mcg PO BID 09/13/16 [History] Flecainide Acetate 1 tab PO BID 09/13/16 [History] Magnesium 500 mg PO BEDTIME 09/13/16 [History] Multivitamin [Multiple Vitamins] 1 each PO BEDTIME 09/13/16 [History] Pantoprazole Sodium [Protonix] 40 mg PO DAILY 09/13/16 [History] Bifidobacter. Bifidum/B.Longum [Florajen Bifidoblend] 460 mg PO DAILY 10/27/16 [ History] Calcium Carb/Vitamin D3/Vit K1 [Viactiv Soft Chew] 2 tab PO BEDTIME 10/27/16 [ History] Hydrocodone/Acetaminophen [[place] 5-325 Tablet] 1 each PO Q6H PRN #12 tablet 02/05 [Rx] Nitroglycerin 0.4 mg SL ASDIRECTED PRN #6 tab.subl 10/28/16 [Rx] Patient Handouts: Nonspecific Chest Pain Referrals: Joselyn Lopes NP [Primary Care Provider] - 11/07/16 10:00 am (Follow-up appointment with Joselyn Lopes NP on November 07, 2016 at 10:00 AM. Please arrive 15 min early for check in. ) Yolanda Cool MD [Ordering Only Provider] - 11/04/16 11:00 am ( come 15 minutes prior to the apointment, to register. appointment is derik time ) - Discharge Summary/Plan Comment DC Time >30 min.: Yes (45 mins) Discharge Summary/Plan Comment: Discharge to Home - General Info Date of Service: 10/28/16 Admission Dx/Problem (Free Text: Admission Diagnosis/Problem Admission Diagnosis/Problem Chest pain Subjective Update: Follow Up Functional Status: Reports: pain controlled, tolerating diet, ambulating, urinating. Denies: new symptoms - Review of Systems General: Denies: Fever, Weakness, Fatigue, Malaise, Chills HEENT: Reports: no symptoms Pulmonary: Denies: shortness of breath, pleuritic chest pain, cough Cardiovascular: Denies: Chest Pain, Palpitations, Dyspnea on Exertion, Orthopnea , Edema, Lightheadedness Gastrointestinal: Denies: Abdominal pain, Nausea, Vomiting Genitourinary: Reports: no symptoms Musculoskeletal: Reports: no symptoms Skin: Reports: no symptoms Neurological: Denies: Confusion, Difficulty Walking, Weakness, Gait Disturbance Psychiatric: Denies: depression, mood lability, anxiety, agitation, hallucinations Systems Review Comment: No overnight or acute issues. She is completely asymptomatic this morning. Her follow up CE this am remains normal. Her EKG this Am shows no acute ST-T wave changes. Lipid panel and Thyroid Function Test are both within normal limits. - Patient Data Vitals - Most Recent: Last Vital Signs Temp 36.7 C 10/28/16 08:00 Pulse 71 10/28/16 03:09 Resp 12 10/28/16 08:00 BP 96/55 L 10/28/16 08:00 Pulse Ox 99 10/28/16 03:09 Weight - Most Recent: 95.572 kg I&O - Last 24 hours: Intake & Output 10/27/16 10/28/16 10/28/16 22:59 06:59 14:59 Intake Total 700 Balance 700 Lab Results - Last 24 hrs: Laboratory Results - last 24 hr 10/27/16 10/28/16 10/28/16 Range/Units 17:54 06:25 06:25 WBC 6.09 (3.98-10.04) K/mm3 RBC 4.01 (3.98-5.22) M/mm3 Hgb 13.3 (11.2-15.7) gm/L Hct 38.1 (34.1-44.9) % MCV 95.0 H (79.4-94.8) fl MCH 33.2 H (25.6-32.2) pg MCHC 34.9 (32.2-35.5) g/dl RDW Std Deviation 40.9 (36.4-46.3) fL Plt Count 218 (182-369) K/mm3 MPV 8.9 L (9.4-12.3) fl Neut % (Auto) 58.1 (34.0-71.1) % Lymph % (Auto) 25.6 (19.3-51.7) % [place] % (Auto) 13.5 H (4.7-12.5) % Eos % (Auto) 2.3 (0.7-5.8) Baso % (Auto) 0.3 (0.1-1.2) % Neut # (Auto) 3.54 (1.56-6.13) K/mm3 Lymph # (Auto) 1.56 (1.18-3.74) K/mm3 [place] # (Auto) 0.82 H (0.24-0.36) K/mm3 Eos # (Auto) 0.14 (0.04-0.36) K/mm3 Baso # (Auto) 0.02 (0.01-0.08) K/mm3 Sodium 138 (136-145) mEq/L Potassium 3.7 (3.5-5.1) mEq/L Chloride 107 (98-107) mEq/L Carbon Dioxide 23 (21-32) mEq/L Anion Gap 11.7 (5-15) BUN 12 (7-18) mg/dL Creatinine 0.7 (0.55-1.02) mg/dL Est Cr Clr Drug Dosing 99.73 mL/min Estimated GFR (MDRD) > 60 (>60) mL/min BUN/Creatinine Ratio 17.1 (14-18) Glucose 99 (74-106) mg/dL Calcium 8.0 L (8.5-10.1) mg/dL Magnesium 1.7 L (1.8-2.4) mg/dl CK-MB (CK-2) < 0.5 < 0.5 (0-3.6) ng/ml Troponin I < 0.017 < 0.017 (0.00-0.056) ng/mL Triglycerides 154 H (<150) mg/dL Cholesterol 139 (<200) mg/dL LDL Cholesterol Direct 73 (<100) mg/dL HDL Cholesterol 53.0 (40-59) mg/dL Free T4 0.90 (0.76-1.46) ng/dL TSH 3rd Generation 2.979 (0.358-3.74) uIU/mL Med Orders - Current: Current Medications Acetaminophen (Tylenol) 650 mg PO Q4H PRN PRN Reason: Pain (Mild 1-3)/fever Last Admin: 10/27/16 21:01 Dose: 650 mg Hydrocodone Bitart/Acetaminophen ([place] 325-5 Mg) 1 tab PO Q4H PRN PRN Reason: Pain (moderate 4-6) Last Admin: 10/28/16 05:10 Dose: 1 tab Albuterol/Ipratropium (Duoneb 3.0-0.5 Mg/3 Ml) 3 ml NEB Q4H PRN PRN Reason: Shortness Of Breath/wheezing Bisacodyl (Dulcolax) 5 mg PO DAILY PRN PRN Reason: Constipation Docusate Sodium (Colace) 100 mg PO BID PRN PRN Reason: Constipation Enoxaparin Sodium (Lovenox) 40 mg SUBCUT DAILY [facility] Last Admin: 10/28/16 08:59 Dose: 40 mg Flecainide Acetate (Tambocor) 50 mg PO BID [facility] Last Admin: 10/28/16 08:58 Dose: 50 mg Hydralazine HCl (Apresoline) 20 mg IVPUSH Q4H PRN PRN Reason: Hypertension Sodium Chloride (Normal Saline) 1,000 mls @ 50 mls/hr IV ASDIRECTED [facility] Last Admin: 10/28/16 00:13 Dose: 50 mls/hr Promethazine HCl 12.5 mg/ (Sodium Chloride) 50.5 mls @ 100 mls/hr IV Q6H PRN PRN Reason: Nausea/Vomiting Lorazepam (Ativan) 1 mg IV Q6H PRN PRN Reason: Nausea/Vomiting Magnesium Oxide (Magnesium Oxide) 400 mg PO BEDTIME [facility] Last Admin: 10/27/16 20:54 Dose: 400 mg Magnesium Sulfate (Pharmacy To Dose - Magnesium Replacement) 1 dose .XX ASDIRECTED [facility] Metoprolol Tartrate (Lopressor) 5 mg IVPUSH Q4H PRN PRN Reason: Tachycardia Morphine Sulfate (Morphine) 2 mg IVPUSH Q2H PRN PRN Reason: Pain (severe 7-10) Stop: 10/28/16 14:36 Last Admin: 10/27/16 14:37 Dose: 2 mg Multivitamins (Thera) 1 each PO BEDTIME [facility] Last Admin: 10/27/16 20:52 Dose: 1 each Ondansetron HCl (Zofran) 4 mg IV Q6H PRN PRN Reason: Nausea/Vomiting Last Admin: 10/28/16 05:15 Dose: 4 mg Pantoprazole Sodium (Protonix) 40 mg PO DAILY [facility] Last Admin: 10/28/16 08:58 Dose: 40 mg Calcium Carb/Vitamin D3/Vit K1 [Viactiv Soft Chew] 2 Tab) 0 each PO BEDTIME [facility] Last Admin: 10/27/16 20:53 Dose: Not Given Chromium Picolinate [Chromium Picolinate ] 400 Mcg 0 each PO BID [facility] Last Admin: 10/27/16 20:53 Dose: Not Given Polyethylene Glycol (Miralax) 17 gm PO DAILY PRN PRN Reason: Constipation Potassium Chloride (Pharmacy To Dose - Potassium Replacement) 1 dose .XX ASDIRECTED [facility] Saccharomyces Boulardii (Florastor) 250 mg PO DAILY [facility] Last Admin: 10/28/16 08:57 Dose: 250 mg Senna/Docusate Sodium (Senna Plus) 1 tab PO BID PRN PRN Reason: Constipation Temazepam (Restoril) 30 mg PO BEDTIME PRN PRN Reason: Sleep Last Admin: 10/27/16 21:02 Dose: 30 mg Discontinued Medications Aspirin (Aspirin) 324 mg PO ONETIME ONE Stop: 10/27/16 09:06 Last Admin: 10/27/16 09:28 Dose: 324 mg Flecainide Acetate (Tambocor) 50 mg PO BID [facility] Magnesium Oxide (Magnesium Oxide) 400 mg PO BEDTIME [facility] Magnesium Oxide (Magnesium Oxide) 400 mg PO ONETIME ONE Stop: 10/28/16 08:16 Last Admin: 10/28/16 08:59 Dose: 400 mg Morphine Sulfate (Morphine) 2 mg IVPUSH ONETIME ONE Stop: 10/27/16 10:11 Last Admin: 10/27/16 10:14 Dose: 2 mg Morphine Sulfate (Morphine) Confirm Administered Dose 2 mg .ROUTE .STK-MED ONE Stop: 10/27/16 10:16 Last Admin: 10/27/16 10:42 Dose: Not Given Morphine Sulfate (Morphine) 2 mg IVPUSH ONETIME ONE Stop: 10/27/16 10:34 Last Admin: 10/27/16 10:42 Dose: 2 mg Morphine Sulfate (Morphine) 2 mg IVPUSH ONETIME ONE Stop: 10/27/16 10:56 Last Admin: 10/27/16 11:00 Dose: 2 mg Morphine Sulfate (Morphine) 2 mg IVPUSH ONETIME ONE Stop: 10/27/16 11:30 Last Admin: 10/27/16 11:36 Dose: 2 mg Nitroglycerin (Nitrostat) 0.4 mg SL Q5M PRN PRN Reason: Chest Pain Stop: 10/27/16 09:16 Last Admin: 10/27/16 09:37 Dose: 0.4 mg Nitroglycerin (Nitrostat) 0.4 mg SL ONETIME ONE Stop: 10/27/16 09:46 Last Admin: 10/27/16 09:51 Dose: 0.4 mg Nitroglycerin (Nitro-Bid 2%) 1 gm TOP ONETIME ONE Stop: 10/27/16 09:46 Last Admin: 10/27/16 09:52 Dose: 1 gm Nitroglycerin (Nitro-Bid 2%) 1 gm TOP ONETIME ONE Stop: 10/27/16 10:56 Last Admin: 10/27/16 11:02 Dose: 1 gm Nitroglycerin (Nitro-Bid 2%) Confirm Administered Dose 1 gm .ROUTE .STK-MED ONE Stop: 10/27/16 11:01 Last Admin: 10/27/16 11:04 Dose: Not Given Nitroglycerin (Nitro-Bid 2%) 1 gm TOP ONETIME ONE Stop: 10/27/16 11:30 Last Admin: 10/27/16 11:36 Dose: 1 gm Pantoprazole Sodium (Protonix Iv) 40 mg IV Q12HR CATHLEEN Pantoprazole Sodium (Protonix) 40 mg PO DAILY CATHLEEN Potassium Chloride (Klor-Con M20) 40 meq PO ONETIME ONE Stop: 10/28/16 08:16 Last Admin: 10/28/16 08:58 Dose: 40 meq - Exam General: Reports: alert, oriented, cooperative, no acute distress HEENT: Reports: Pupils equal, Pupils reactive, EOMI, Mucous membr. moist/pink Neck: Reports: supple, trachea midline, no JVD, no thyromegaly Lungs: Reports: Clear to auscultation, Normal respiratory effort Cardiovascular: Reports: Regular Rate, Regular Rhythm Abdomen: Reports: bowel sounds present, soft, no tenderness, no distension (Female) Exam: Deferred Rectal (Female) Exam: Deferred Back Exam: Reports: Normal Inspection, Decreased Range of Motion Extremities: Reports: no edema, normal pulses, no tenderness/swelling, no clubbing, no cyanosis, no calf tenderness Skin: Reports: warm, dry, intact Neurological: Reports: no new focal deficit Psy/Mental Status: Reports: alert, normal affect, normal mood *Q Meaningful Use (DIS) - VTE *Q VTE Criteria *Q: - Stroke *Q Stroke Criteria *Q: - AMI *Q AMI Criteria *Q:
[2016-10-28 10:39] VITALS: BP 114/78
== END 2016-10-28 11:28 | disposition home or self-care (01) ==
LOC: JD.ED 08:57 → JD.MS 13:01
PROVIDERS: ADMIT Internal Medicine; ATTEND Internal Medicine
DX: R07.9 Chest pain, unspecified (principal); E83.42 Hypomagnesemia; I49.3 Ventricular premature depolarization; E55.9 Vitamin D deficiency, unspecified; E66.01 Morbid (severe) obesity due to excess calories; K21.9 Gastro-esophageal reflux disease without esophagitis; Z79.899 Other long term (current) drug therapy; Z88.0 Allergy status to penicillin; Z88.1 Allergy status to other antibiotic agents; Z88.8 Allergy status to other drugs, medicaments and biological substances; Z98.890 Other specified postprocedural states; Z98.84 Bariatric surgery status
CPT/HCPCS: 36415; 71010; 80048; 80053; 80061; 82553; 83735; 84439; 84443; 84484; 85025; 85610; 85730; 93005; A9270; J1650; J2270; J2405; J7040; 96361; 96372; 96374; 96375; 96376; 99217; 99219; 99284; 99285-25; G0378

== ENCOUNTER 2016-11-23 09:37 | Day surgery (SDC) | payer BC ==
[~2016-11-23 09:37] MED LIST: Lactated Ringers 1,000 ML IV SCH; Lidocaine 1%/Sod Bicarbonate in NS 8.4% 1 ML Syringe PRN; Sodium Chloride 0.9% 10 ML Syringe FLUSH PRN
--- NOTE | 2016-11-23 09:57 | PCM.PREANE ---
Preanesthetic Assessment - Procedure Proposed Procedure: Diagnostic EGD - Anesthesia/Transfusion/Family Hx Anesthesia History: Prior Anesthesia Without Reaction Family History of Anesthesia Reaction: No Transfusion History: No Prior Transfusion(s) Intubation History: Unknown - Review of Systems General: No Symptoms Pulmonary: No Symptoms Cardiovascular: Other (dysrhythmias ) Gastrointestinal: Other (GERD ) Neurological: No Symptoms Other: Reports: None - Physical Assessment NPO Status Date: 11/22/16 NPO Status Time: 21:00 Pulse: 77 O2 Sat by Pulse Oximetry: 95 Respiratory Rate: 16 Blood Pressure: 124/85 Temperature: 37.3 C Height: 1.7 m Weight: 95.572 kg ASA Class: 2 Mental Status: Alert & Oriented x3 Airway Class: Mallampati = 2 Dentition: Reports: Normal Dentition Thyro-Mental Finger Breadths: 3 Mouth Opening Finger Breadths: 3 ROM/Head Extension: Full Lungs: Clear to auscultation, Normal respiratory effort Cardiovascular: Regular Rate, Regular Rhythm - Allergies Allergies/Adverse Reactions: Allergies Allergy/AdvReac Type Severity Reaction Status Date / Time bacitracin Allergy Rash Verified 11/21/16 12:04 [From Neosporin ([id number])] minocycline Allergy Hives Verified 11/21/16 12:04 neomycin Allergy Rash Verified 11/21/16 12:04 [From Neosporin ([id number])] Penicillins Allergy Hives Verified 11/21/16 12:04 polymyxin B Allergy Rash Verified 11/21/16 12:04 [From Neosporin ([id number])] - Blood Blood Available: No Product(s) Available: None - Anesthesia Plan Pre-Op Medication Ordered: None - Acknowledgements Anesthesia Type Planned: MAC Pt an Appropriate Candidate for the Planned Anesthesia: Yes Alternatives and Risks of Anesthesia Discussed w Pt/Guardian: Yes Pt/Guardian Understands and Agrees with Anesthesia Plan: Yes PreAnesthesia Questionnaire - Past Health History Medical/Surgical History: Denies Medical/Surgical History HEENT History: Reports: Impaired Vision, Other (See Below) Other HEENT History: wears glasses Cardiovascular History: Reports: Arrhythmia, Other (See Below) Other Cardiovascular History: PVC's, atypical chest pain Respiratory History: Reports: None 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: Reports: GERD Genitourinary History: Reports: None EXEC. CREATIVE DIRECTOR History: Reports: Other (See Below) Other OB/BYN History: novasure ablation Neurological History: Reports: None Psychiatric History: Reports: None Endocrine/Metabolic History: Reports: None Hematologic History: Reports: Hemochromatosis Immunologic History: Reports: None Oncologic (Cancer) History: Reports: None Dermatologic History: Reports: None - Infectious Disease History Infectious Disease History: Reports: Chicken Pox, Shingles - Past Surgical History Head Surgeries/Procedures: Reports: None HEENT Surgical History: Reports: Adenoidectomy GI Surgical History: Reports: Bariatric Procedure, Cholecystectomy, Colonoscopy , EGD Musculoskeletal Surgical History: Reports: Arthroscopic Knee Other Musculoskeletal Surgeries/Procedures:: left knee scoping - SUBSTANCE USE Smoking Status *Q: Never Smoker Second Hand Smoke Exposure: No Days Per Week of Alcohol Use: 6 Number of Drinks Per Day: 1 Total Drinks Per Week: 6 Recreational Drug Use History: No - HOME MEDS Home Medications: Home Meds Chromium Picolinate 400 mcg PO BID 09/13/16 [History] Flecainide Acetate 1 tab PO BID 09/13/16 [History] Magnesium 500 mg PO BEDTIME 09/13/16 [History] Multivitamin [Multiple Vitamins] 1 each PO BEDTIME 09/13/16 [History] Pantoprazole Sodium [Protonix] 40 mg PO DAILY 09/13/16 [History] Bifidobacter. Bifidum/B.Longum [Florajen Bifidoblend] 460 mg PO DAILY 10/27/16 [ History] Calcium Carb/Vitamin D3/Vit K1 [Viactiv Soft Chew] 2 tab PO BEDTIME 10/27/16 [ History] Hydrocodone/Acetaminophen [[place] 5-325 Tablet] 1 each PO Q6H PRN #12 tablet 02/05 [Rx] Nitroglycerin 0.4 mg SL ASDIRECTED PRN #6 tab.subl 10/28/16 [Rx] - CURRENT (IN HOUSE) MEDS Current Meds: Current Medications Lactated Ringer's (Ringers, Lactated) 1,000 mls @ 125 mls/hr IV ASDIRECTED CATHLEEN Stop: 11/23/16 23:00 Lidocaine/Sodium Bicarbonate (Buffered Lidocaine 1% In Ns 8.4%) 0.25 ml .XX ONETIME PRN PRN Reason: Prior to IV Start Stop: 11/23/16 18:00 Sodium Chloride (Saline Flush) 10 ml FLUSH ASDIRECTED PRN PRN Reason: Keep Vein Open Stop: 11/23/16 18:00
[2016-11-23] MEDS ORDERED: fentaNYL 100 MCG/2 ML SDV ONE (10:22)
[2016-11-23] MEDS ORDERED: Propofol 200 MG/20 ML SDV ONE (10:22)
[2016-11-23] MEDS ORDERED: Midazolam 1 MG/ML 2 ML SDV ONE (10:23)
[2016-11-23] MEDS ORDERED: Lidocaine 1% 6 ML ONE (10:24)
--- NOTE | 2016-11-23 10:55 | PCM.OPNOTE ---
- General Post-Op/Procedure Note Date of Surgery/Procedure: 11/23/16 Operative Procedure(s): Esophagogastroduodenoscopy with antral biopsy 1, GE junction biopsy 2, and proximal third of the esophagus biopsy 2 -- all using cold forceps. Findings: Duodenal gastric bile reflux antritis Large amount of bowel within the body of the stomach Endoscopic findings consistent with sleeve gastrectomy Small hiatal hernia Pre Op Diagnosis: Atypical chest pain status post sleeve gastrectomy Post-Op Diagnosis: 1. Duodenal gastric bilious reflux. 2. Bile antritis. 3. Small hiatal hernia Anesthesia Technique: MAC, Moderate sedation Primary Surgeon: Curtis Durant Pathology: Antral, GE junction, proximal esophageal biopsies EBL in mLs: 1 Complications: None Condition: Good Free Text/Narrative:: After adequate IV sedation and analgesia with monitoring the patient was placed on her left side. Through a bite-block a lubricated upper endoscope was inserted into the esophagus and advanced under direct vision towards the stomach. Air was given here followed by entry through the pylorus into the duodenum. The second and first parts of the duodenum were endoscopically normal with no mass lesions or inflammatory changes seen. There was a large amount of bile within the residual body of the stomach and antral areas. There was a slight erythema to the antrum. There were no antral erosions or ulcers. A biopsy using cold forceps was taken for histologic evaluation. The gastric sleeve itself had no obvious complications. In the retroflexed view there was a small hiatal hernia. The fundus and body of the stomach were grossly normal. The scope was then withdrawn to the area of the GE junction. The hiatal hernia was seen. 2 random biopsies were taken of the GE junction. There were no gross inflammatory changes within the body of the esophagus. There was no stricturing. The scope was then withdrawn to the proximal third of the esophagus. At about 15 cm 2 biopsies were taken using cold forceps for histologic evaluation. The vocal cords were briefly visualized and were grossly normal. Air was removed as I finished procedure which she tolerated well. Quality Engineering Manager photographs taken for the patient for the record.
--- NOTE | 2016-11-23 11:06 | PCM48HPAN ---
Post Anesthesia Note - EVALUATION WITHIN 48HRS OF ANESTHETIC Vital Signs in Normal Range: Yes Patient Participated in Evaluation: Yes Respiratory Function Stable: Yes Airway Patent: Yes Cardiovascular Function Stable: Yes Hydration Status Stable: Yes Pain Control Satisfactory: Yes Nausea and Vomiting Control Satisfactory: Yes Mental Status Recovered: Yes
[2016-11-23 11:30] VITALS: BP 114/75
== END 2016-11-23 11:25 | disposition home or self-care (01) ==
LOC: JD.SDS 09:37
PROVIDERS: ATTEND Surgery
DX: K21.0 Gastro-esophageal reflux disease with esophagitis (principal); K44.9 Diaphragmatic hernia without obstruction or gangrene; K21.9 Gastro-esophageal reflux disease without esophagitis; Z88.0 Allergy status to penicillin; Z88.1 Allergy status to other antibiotic agents; Z88.8 Allergy status to other drugs, medicaments and biological substances; Z79.899 Other long term (current) drug therapy; Z98.84 Bariatric surgery status; Z98.890 Other specified postprocedural states; Z78.9 Other specified health status
CPT/HCPCS: 43239; 88305; J2250; J3010; J7120; J2704

== ENCOUNTER 2017-01-17 07:30 | Day surgery (SDC) | payer BC ==
[~2017-01-17 07:30] MED LIST changes: -Lactated Ringers 1,000 ML IV SCH; +Lidocaine 1% with EPINEPHrine 1:100,000 20 ML MDV ONE; +Lidocaine 1%/Sod Bicarbonate in NS 8.4% 1 ML Syringe IV PRN; -Lidocaine 1%/Sod Bicarbonate in NS 8.4% 1 ML Syringe PRN; +Sodium Chloride 0.9% 50 ML SDV ONE
[2017-01-17] MEDS ORDERED: Dexamethasone 4 MG/ML 5 ML MDV ONE (07:34)
[2017-01-17] MEDS ORDERED: Lidocaine 1% 4 ML ONE (07:34)
[2017-01-17] MEDS ORDERED: Propofol 200 MG/20 ML SDV ONE (07:34)
[2017-01-17] MEDS ORDERED: fentaNYL 250 MCG/5 ML SDV ONE (07:34)
[2017-01-17] MEDS ORDERED: Rocuronium 50 MG/5 ML Vial ONE (07:34)
[2017-01-17] MEDS ORDERED: Ondansetron 4 MG/2 ML SDV ONE (07:34)
[2017-01-17] MEDS ORDERED: Midazolam 1 MG/ML 2 ML SDV ONE (07:34)
[2017-01-17] MEDS: Lactated Ringers 1,000 ML IV SCH ×2 (07:45→10:55)
--- NOTE | 2017-01-17 07:47 | PCM.PREANE ---
Preanesthetic Assessment - Anesthesia/Transfusion/Family Hx Anesthesia History: Prior Anesthesia Without Reaction Family History of Anesthesia Reaction: No Transfusion History: No Prior Transfusion(s) Intubation History: Unknown - Review of Systems General: No Symptoms Pulmonary: No Symptoms Cardiovascular: No Symptoms, Chest Pain (history of atypical) Gastrointestinal: No Symptoms Neurological: No Symptoms - Physical Assessment NPO Status Date: 01/16/17 NPO Status Time: 21:00 Pulse: 84 O2 Sat by Pulse Oximetry: 96 Respiratory Rate: 16 Blood Pressure: 135/89 Temperature: 98.4 F Height: 5 ft 7 in Weight: 95.572 kg ASA Class: 2 Mental Status: Alert & Oriented x3 Airway Class: Mallampati = 1 Dentition: Reports: Normal Dentition Thyro-Mental Finger Breadths: 3 Mouth Opening Finger Breadths: 3 ROM/Head Extension: Full Lungs: Clear to Auscultation, Normal Respiratory Effort Cardiovascular: Regular Rate, Regular Rhythm - Lab Values: Laboratory Last Values WBC 3.81 K/mm3 (3.98-10.04) L 01/16/17 08:41 RBC 4.79 M/mm3 (3.98-5.22) 01/16/17 08:41 Hgb 15.6 gm/L (11.2-15.7) 01/16/17 08:41 Hct 44.5 % (34.1-44.9) 01/16/17 08:41 MCV 92.9 fl (79.4-94.8) 01/16/17 08:41 MCH 32.6 pg (25.6-32.2) H 01/16/17 08:41 MCHC 35.1 g/dl (32.2-35.5) 01/16/17 08:41 RDW Std Deviation 39.6 fL (36.4-46.3) 01/16/17 08:41 Plt Count 305 K/mm3 (182-369) 01/16/17 08:41 MPV 8.8 fl (9.4-12.3) L 01/16/17 08:41 Neut % (Auto) 41.7 % (34.0-71.1) 01/16/17 08:41 Lymph % (Auto) 42.3 % (19.3-51.7) 01/16/17 08:41 Carson % (Auto) 13.9 % (4.7-12.5) H 01/16/17 08:41 Eos % (Auto) 1.6 (0.7-5.8) 01/16/17 08:41 Baso % (Auto) 0.5 % (0.1-1.2) 01/16/17 08:41 Neut # (Auto) 1.59 K/mm3 (1.56-6.13) 01/16/17 08:41 Lymph # (Auto) 1.61 K/mm3 (1.18-3.74) 01/16/17 08:41 Carson # (Auto) 0.53 K/mm3 (0.24-0.36) H 01/16/17 08:41 Eos # (Auto) 0.06 K/mm3 (0.04-0.36) 01/16/17 08:41 Baso # (Auto) 0.02 K/mm3 (0.01-0.08) 01/16/17 08:41 HCG, Quant < 1.0 mIU/mL 01/16/17 08:41 Blood Type O POSITIVE 01/16/17 08:41 Gel Antibody Screen Negative 01/16/17 08:41 - Allergies Allergies/Adverse Reactions: Allergies Allergy/AdvReac Type Severity Reaction Status Date / Time bacitracin Allergy Rash Verified 01/16/17 14:43 [From Neosporin ([id number])] minocycline Allergy Hives Verified 01/16/17 14:43 neomycin Allergy Rash Verified 01/16/17 14:43 [From Neosporin ([id number])] Penicillins Allergy Hives Verified 01/16/17 14:43 polymyxin B Allergy Rash Verified 01/16/17 14:43 [From Neosporin ([id number])] - Blood Blood Available: No - Acknowledgements Anesthesia Type Planned: General Anesthesia Pt an Appropriate Candidate for the Planned Anesthesia: Yes Alternatives and Risks of Anesthesia Discussed w Pt/Guardian: Yes Pt/Guardian Understands and Agrees with Anesthesia Plan: Yes PreAnesthesia Questionnaire - Past Health History Medical/Surgical History: Denies Medical/Surgical History HEENT History: Reports: Impaired Vision, Other (See Below) Other HEENT History: wears glasses Cardiovascular History: Reports: Arrhythmia, Other (See Below) Other Cardiovascular History: PVC's, atypical chest pain Respiratory History: Reports: None 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: Reports: GERD Genitourinary History: Reports: None ROUGH CARPENTER History: Reports: Other (See Below) Other OB/BYN History: novasure ablation Musculoskeletal History: Reports: None Neurological History: Reports: None Psychiatric History: Reports: None Endocrine/Metabolic History: Reports: Obesity/BMI 30+ Hematologic History: Reports: None, Hemochromatosis Immunologic History: Reports: None Oncologic (Cancer) History: Reports: None Dermatologic History: Reports: None - Infectious Disease History Infectious Disease History: Reports: Chicken Pox, Shingles - Past Surgical History Head Surgeries/Procedures: Reports: None HEENT Surgical History: Reports: Adenoidectomy Respiratory Surgical History: Reports: None GI Surgical History: Reports: Bariatric Procedure, Cholecystectomy, Colonoscopy , EGD Female Surgical History: Reports: Endometrial Ablation Endocrine Surgical History: Reports: None Musculoskeletal Surgical History: Reports: Arthroscopic Knee Other Musculoskeletal Surgeries/Procedures:: left knee scoping Oncologic Surgical History: Reports: None - SUBSTANCE USE Smoking Status *Q: Never Smoker Tobacco Use Within Last Twelve Months: No Second Hand Smoke Exposure: No Days Per Week of Alcohol Use: 2 Number of Drinks Per Day: 2 Total Drinks Per Week: 4 Recreational Drug Use History: No - HOME MEDS Home Medications: Home Meds Flecainide Acetate 50 mg PO BID 09/13/16 [History] Magnesium 500 mg PO BEDTIME 09/13/16 [History] Multivitamin [Multiple Vitamins] 1 each PO BEDTIME 09/13/16 [History] Pantoprazole Sodium [Protonix] 40 mg PO DAILY 09/13/16 [History] Bifidobacter. Bifidum/B.Longum [Florajen Bifidoblend] 460 mg PO DAILY 10/27/16 [ History] Nitroglycerin 0.4 mg SL ASDIRECTED PRN #6 tab.subl 10/28/16 [Rx] Ca Carbonate/Vitamin D3/Vit K [Calcium + D Soft Chewable Tab] 1 tab PO DAILY [History] - CURRENT (IN HOUSE) MEDS Current Meds: Current Medications Lactated Ringer's (Ringers, Lactated) 1,000 mls @ 125 mls/hr IV ASDIRECTED CATHLEEN Lidocaine/Sodium Bicarbonate (Buffered Lidocaine 1% In Ns 8.4%) 0.25 ml IV ONETIME PRN PRN Reason: Prior to IV Start Sodium Chloride (Saline Flush) 10 ml FLUSH ASDIRECTED PRN PRN Reason: Keep Vein Open Discontinued Medications Cefazolin Sodium (Ancef) Confirm Administered Dose 2 gm .ROUTE .STK-MED ONE Stop: 01/17/17 07:49 Dexamethasone (Dexamethasone) Confirm Administered Dose 20 mg .ROUTE .STK-MED ONE Stop: 01/17/17 07:35 Fentanyl (Sublimaze) Confirm Administered Dose 250 mcg .ROUTE .STK-MED ONE Stop: 01/17/17 07:35 Lidocaine HCl (Xylocaine-Mpf 1%) Confirm Administered Dose 4 mls @ as directed .ROUTE .STK-MED ONE Stop: 01/17/17 07:35 Lidocaine/Epinephrine (Xylocaine 1% With Epinephrine 1:100,000) Confirm Administered Dose 20 ml .ROUTE .STK-MED ONE Stop: 01/17/17 07:24 Midazolam HCl (Versed 1 Mg/Ml) Confirm Administered Dose 2 mg .ROUTE .STK-MED ONE Stop: 01/17/17 07:35 Ondansetron HCl (Zofran) Confirm Administered Dose 4 mg .ROUTE .STK-MED ONE Stop: 01/17/17 07:35 Propofol (Diprivan 20 Ml) Confirm Administered Dose 200 mg .ROUTE .STK-MED ONE Stop: 01/17/17 07:35 Rocuronium [place] (Zemuron) Confirm Administered Dose 50 mg .ROUTE .STK-MED ONE Stop: 01/17/17 07:35 Sodium Chloride (Normal Saline) Confirm Administered Dose 50 ml .ROUTE .STK-MED ONE Stop: 01/17/17 07:24
[2017-01-17] MEDS ORDERED: ceFAZolin 1 GM Vial ONE (07:48)
[2017-01-17] MEDS ORDERED: Meperidine PF 50 MG/ML Syringe IVPUSH PRN (08:22)
[2017-01-17] MEDS ORDERED: Ondansetron 4 MG/2 ML SDV IVPUSH PRN (08:22)
[2017-01-17] MEDS ORDERED: fentaNYL 100 MCG/2 ML SDV IVPUSH PRN (08:22)
[2017-01-17] MEDS ORDERED: Lactated Ringers 1,000 ML ONE (08:31)
[2017-01-17] MEDS ORDERED: HYDROmorphone 1 MG/ML Syringe ONE (08:38)
[2017-01-17] MEDS ORDERED: Ketorolac 30 MG/ML SDV ONE (08:42)
[2017-01-17] MEDS ORDERED: Metoclopramide 10 MG/2 ML SDV ONE (08:43)
[2017-01-17] MEDS ORDERED: fentaNYL 100 MCG/2 ML SDV ONE (08:47)
[2017-01-17] MEDS ORDERED: Glycopyrrolate 0.2 MG/ML SDV ONE ×2 (09:11→09:13)
[2017-01-17] MEDS ORDERED: Neostigmine Methylsulfate 10 MG/10 ML MDV ONE (09:11)
--- NOTE | 2017-01-17 09:19 | PCM.OPNOTE ---
- General Post-Op/Procedure Note Date of Surgery/Procedure: 01/17/17 Operative Procedure(s): Total vaginal hysterectomy with bilateral salpingectomy Pre Op Diagnosis: Dysmenorrhea, menorrhagia, metrorrhagia Post-Op Diagnosis: Same plus small fibroid subserosal Anesthesia Technique: General ET Tube Primary Surgeon: Long Simpson Secondary Surgeon: Gilberto Staples Anesthesia Provider: [facility] Plan Administrator: Nilam Alexander (PAS) Hospice Plan Administrator: Walker Sotomayor ([id number]) Fluid Replacement, Intraop: 1,400 Output, Urine Amount: 5 EBL in mLs: 400 Drain/Tube Comments:: None Complications: None Condition: Good Free Text/Narrative:: Intake & Output 01/16/17 01/17/17 01/17/17 22:59 06:59 14:59 Output Total 5 Balance -5 Patient was transported to operating room #2 and placed under general anesthesia with endotracheal intubation low dorsal lithotomy position and prepared and draped in a sterile fashion SCDs in place and functioning prior surgery Ancef 2 g given intravenously prior surgery timeout performed confirming name date of and procedure as total vaginal hysterectomy bilateral salpingectomy. Examination under anesthesia had revealed normal size uterus no adnexal masses. Bladder was drained of approximately 5 mL of urine. The cervix was injected with 0.25% lidocaine with epinephrine utilizing 15 mL and multiple confluent areas. Circumscribing incision was made and posterior colpotomy was made placing long weighted speculum utilizing LigaSure impact crossclamping the left uterosacral and cardinal ligament bundle activating and incising same procedure carried out on patient's right side and proceeding cephalad in a pedicle fashion crossclamping activating and incising utilizing the LigaSure impact pedicles were created until reaching the triple pedicle bilaterally crossclamping with Zeina clamps the uterus and cervix removed intact the triple pedicles were suture ligated with 0 Vicryl bilaterally and then localizing the left tube grasping and retracting crossclamping with LigaSure impact activating and incising the left tube was removed, same procedure carried out in the right side. Both ovaries were normal. Neither ovary removed. Hemostasis was normal no active bleeding pursestring suture of 0 Monocryl was placed beginning at the apex and proceeding in a clockwise fashion to incorporate the pedicles extraperitoneally. Posterior cuff was closed running locking suture of 0 Monocryl in the anterior posterior cuff closed running locking suture of 0 Monocryl. Sponge needle pack asthma sharp count correct 2 no blood transfusions required patient transported postanesthesia care unit in satisfactory condition. All tissue sent to pathology for tissue evaluation.
--- NOTE | 2017-01-17 09:19 | PCM.POSTAN ---
POST ANESTHESIA ASSESSMENT - MENTAL STATUS Mental Status: Alert, Oriented - VITAL SIGNS Pulse Rate: 95 SaO2: 98 Resp Rate: 18 Blood Pressure: 128/90 Temperature: 98.5 F - RESPIRATORY Respiratory Status: Respiratory Rate WNL, Airway Patent, O2 Saturation Stable, Supplemental Oxygen - CARDIOVASCULAR CV Status: Pulse Rate WNL, Blood Pressure Stable - GASTROINTESTINAL GI Status: No Symptoms - PAIN Pain Score: 0 (crampy) - POST OP HYDRATION Hydration Status: Adequate & Stable
[2017-01-17] MEDS: HYDROmorphone 0.5 MG/0.5 ML Syringe IVPUSH PRN ×2 (09:20→09:43)
[2017-01-17] MEDS ORDERED: Acetaminophen/oxyCODONE 325-5 MG Tab PO ONE (12:00)
[2017-01-17 13:08] VITALS: BP 126/75
== END 2017-01-17 12:45 | disposition home or self-care (01) ==
LOC: JD.SDS 07:30
PROVIDERS: ATTEND Obstetrics & Gynecology
DX: D39.0 Neoplasm of uncertain behavior of uterus (principal); N72 Inflammatory disease of cervix uteri; K21.9 Gastro-esophageal reflux disease without esophagitis; Z88.0 Allergy status to penicillin; Z88.1 Allergy status to other antibiotic agents; Z88.8 Allergy status to other drugs, medicaments and biological substances; Z98.890 Other specified postprocedural states; Z79.899 Other long term (current) drug therapy; Z68.34 Body mass index [BMI] 34.0-34.9, adult
CPT/HCPCS: 36415; 58552; 84702; 85025; 86850; 86900; 86901; 93005; A9270; J0690; J1100; J1170; J1885; J2250; J2405; J2710; J2765; J3010; J3490; J7120; 00944; J2704

== ENCOUNTER → 2022-02-22 | Day surgery (SDC) | payer BC ==
[~2022-02-22] MED LIST changes: +Lactated Ringers 1,000 ML IV ONE; +Lidocaine 1% 4 ML ONE; -Lidocaine 1% with EPINEPHrine 1:100,000 20 ML MDV ONE; -Lidocaine 1%/Sod Bicarbonate in NS 8.4% 1 ML Syringe IV PRN; +Midazolam 1 MG/ML 2 ML SDV ONE; +Ondansetron 4 MG/2 ML SDV ONE; +Propofol 200 MG/20 ML SDV ONE; -Sodium Chloride 0.9% 10 ML Syringe FLUSH PRN; -Sodium Chloride 0.9% 50 ML SDV ONE; +fentaNYL 100 MCG/2 ML SDV ONE
== END ==
LOC: JD.SDS 06:00
PROVIDERS: ATTEND Surgery
DX: Z12.11 Encounter for screening for malignant neoplasm of colon (principal); K57.30 Diverticulosis of large intestine without perforation or abscess without bleeding; K37 Unspecified appendicitis; D64.9 Anemia, unspecified; I10 Essential (primary) hypertension; F41.9 Anxiety disorder, unspecified; K21.9 Gastro-esophageal reflux disease without esophagitis; E66.9 Obesity, unspecified; E55.9 Vitamin D deficiency, unspecified; D72.819 Decreased white blood cell count, unspecified; Z88.1 Allergy status to other antibiotic agents; Z88.0 Allergy status to penicillin; Z79.899 Other long term (current) drug therapy; Z98.890 Other specified postprocedural states; Z90.49 Acquired absence of other specified parts of digestive tract; Z90.710 Acquired absence of both cervix and uterus; Z68.34 Body mass index [BMI] 34.0-34.9, adult
CPT/HCPCS: 45380; J2250; J2405; J2704; J3010

== ENCOUNTER 2024-03-28 07:00 | Day surgery (SDC) | payer BC ==
[~2024-03-28 07:00] MED LIST changes: -Lactated Ringers 1,000 ML IV ONE; -Lidocaine 1% 4 ML ONE; +Lidocaine 1% 5 ML VIAL ONE; -Ondansetron 4 MG/2 ML SDV ONE; +Sodium Chloride 0.9% 10 ML Syringe FLUSH PRN; +Sodium Chloride 0.9% 10 ML Syringe FLUSH SCH; +ceFAZolin 2 GM Vial ONE
[2024-03-28] MEDS: Lactated Ringers 1,000 ML IV SCH (07:00)
[2024-03-28] MEDS ORDERED: Ondansetron 4 MG/2 ML SDV ONE (07:03)
[2024-03-28] MEDS ORDERED: Dexamethasone 4 MG/ML 5 ML MDV ONE (07:05)
[2024-03-28] MEDS ORDERED: Lactated Ringers 1,000 ML ONE (07:06)
[2024-03-28] MEDS: Acetaminophen 325 MG Tab PO ONE (07:16)
[2024-03-28] MEDS: Pregabalin 25 MG Cap PO ONE (07:17)
[2024-03-28] MEDS: oxyCODONE ER 10 MG TAB.ER PO ONE (07:17)
[2024-03-28] MEDS ORDERED: Ondansetron 4 MG/2 ML SDV IVPUSH PRN (07:40)
[2024-03-28] MEDS ORDERED: droPERidol 5 MG/2 ML SDV IVPUSH PRN (07:40)
[2024-03-28] MEDS ORDERED: Phenylephrine 1% 10 MG/ML SDV ONE (08:33)
[2024-03-28] MEDS ORDERED: Ropivacaine 0.5% 5 MG/ML 30 ML SDV ONE (08:34)
[2024-03-28] MEDS ORDERED: dexmedeTOMIDine HCl 200 MCG/2 ML SDV ONE (08:35)
[2024-03-28] MEDS ORDERED: Propofol 200 MG/20 ML SDV ONE ×2 (08:51→09:25)
[2024-03-28] MEDS: Morphine 8 MG, EPINEPHrine 0.3 MG, Cefuroxime 750 MG, Ketorolac 30 MG, Sodium Chloride ... PRN (09:27)
[2024-03-28] MEDS: Vancomycin 1 GM SDV ONE (09:30)
[2024-03-28] MEDS: Tranexamic Acid 1,000 MG/10 ML Vial ONE (09:30)
[2024-03-28] MEDS ORDERED: Ketorolac 30 MG/ML SDV ONE (09:46)
[2024-03-28] MEDS: fentaNYL 100 MCG/2 ML SDV IVPUSH PRN (10:17)
[2024-03-28] MEDS: HYDROmorphone 0.5 MG/0.5 ML Syringe IVPUSH PRN (10:17)
[2024-03-28] MEDS: oxyCODONE 5 MG Tab PO PRN (11:54)
[2024-03-28] MEDS: Cyclobenzaprine 10 MG Tab PO SCH (15:18)
== END 2024-03-28 15:47 | disposition home or self-care (01) ==
LOC: JD.SDS 07:00
PROVIDERS: ATTEND Orthopaedic Surgery
DX: M17.12 Unilateral primary osteoarthritis, left knee (principal)
CPT/HCPCS: 0055T; 27447; 64447; 73560; 97110; 97161; 97530; A9270; C1713; C1776; J0171; J0690; J0697; J1100; J1171; J1885; J2250; J2272; J2371; J2405; J2704; J2795; J3010; J7120; 01402; J3490